=== PATIENT | male | born 1990 ===

== ENCOUNTER → 2017-03-18 | Outpatient (CLI) | payer OTHER ==
[~2017-03-18] MED LIST: BUPR200T2 PO; CYCL10TA2 PO; IBUP200T58 PO
--- NOTE | 2017-03-18 18:18 | PAIN ---
DATE OF SERVICE: 03/18/2017 CHIEF COMPLAINT: Low back and right lower extremity pain. HISTORY OF PRESENT ILLNESS: This is a 26-year-old male who presents with history of pain for many years since 2012 after active and physical job, he works as a automotive glass mechanic with significant pain throughout the back, mostly in the low back, but also in mid and upper back, has been getting worse with time and activity. The patient reports he is having significant pain in the low back itself, also radiating into the posterior aspect of the upper and mid back and sometimes in the neck and shoulders. The patient reports the pain is constant, sharp, stabbing, throbbing with numbness, radiation, tingling, changes during the day with intermittent in intensity, but always present, aching, cramping, burning with some radiation into the right hip, into the groin, also to posterior gluteus, posterior thigh, occasionally into the right lower leg below the knee, mostly the medial aspect of the calf, but only intermittently and not every day. The patient reports it awakens him from sleep at least 3 times a night. Does not affect his bowel or bladder control, but does affect his ability to walk especially with the right leg. The patient reports he has not had any other therapies at this time. No physical therapies, no interventional techniques or other treatments or chiropractic. The patient reports his disability rating from 0-10, 10 being the worst, 7 with family and home responsibilities and sexual behavior, 8 with occupation, 6 with recreation and social activity, 5 with self care and 7 with life support activities. The patient reports no loss of motor function with significant fatigability of the right hip and leg when standing or walking more than about 20-30 minutes. PAST MEDICAL HISTORY: Significant for cigarette smoking half pack a day for the past 10 years, headaches, arthritis, random joint pains. PREVIOUS SURGERY: Includes LASIK procedure, wisdom teeth extraction and a cyst removed in the past. CURRENT MEDICATIONS: Include bupropion, muscle relaxants, Advil and Tylenol. ALLERGIES: The patient has no known drug allergies. FAMILY HISTORY: Significant for no major medical problems or conditions that he is aware of. SOCIAL HISTORY: The patient drinks about 6 beers a month, smokes half pack of cigarettes per day, has for 10 years, single, lives with his significant other, has 2 children, 9 months old living in the home as well and lives in [place], [place]. The patient works as a automotive glass mechanic and he is only working part-time currently because of the pain. REVIEW OF SYSTEMS: The patient's review of systems is positive for those items mentioned in history of present illness is completed in full, well documented on the patient's chart and all systems are reviewed only positive on those listed in the history of present illness. PHYSICAL EXAMINATION: VITAL SIGNS: The patient's blood pressure 130/84, pulse ____, respirations 18, temperature 98.0 degrees Fahrenheit, height is 6 feet 2 inches, weight is 191 pounds. GENERAL: The patient is awake, alert, oriented, appropriate. He is a very pleasant demeanor. HEENT: Head shows normocephalic, atraumatic. Extraocular movements are intact and symmetrical. Oral cavity shows mucous membranes moist and pink. Dentition is intact. NECK: Shows anterior throat supple without palpable lymphadenopathy noted. Swallow reflex is symmetrical. CHEST: Shows normal on inspection. Breath sounds are clear to auscultation bilaterally. HEART: Shows S1 and S2 clear. No murmurs auscultated. ABDOMEN: Soft, nontender, nondistended. No palpable organomegaly is noted. No rebound or guarding demonstrated. BACK: Shows spine grossly in the midline. No previous bruises, lesions, rashes or scars are noted. Cervical lordotic curvature, thoracic kyphotic curvature and lumbar lordotic curvature all appeared normal in appearance. With palpation shows some moderate tenderness to palpation throughout the cervical inferior aspect of the paraspinous musculature as well as superior and medial trapezius, slightly more on the right than the left. Rhomboid distribution as well as infra and suprascapular regions are moderately tender again more on the right than the left, but not asymmetric without specific trigger points without radiation. This is ____ the thoracic paraspinous musculature as well as the lumbar distribution which is firm and tender throughout the upper, middle and lower distribution, slightly more in the lower distribution bilaterally, again more on the right than the left, but appears roughly symmetrical with no evidence of atrophy or hypertrophy. No trigger points with palpation demonstrated. The patient has good rotational motion of the cervical spine as well as the lumbar and thoracic spines with full rotation both laterally as well as extension and flexion in all regions without significant pain reported. Mild tenderness over the sacroiliac regions, but only very mild. With deep palpation, no tenderness over the sacrum. EXTREMITIES: Show upper extremity deep tendon reflexes 2+ in the biceps and triceps tendons. Lower extremities showed 2+ patellar, 1+ tendo-calcaneus tendons, are symmetrical and equal bilaterally. 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 Peripheral pulses are 2+, radial distribution. No peripheral edema is noted. Shoulder shrug is strong and intact as is abduction of shoulders at 90 degrees without difficulty. Lower extremities show motor intact at 5/5 with dorsiflexion and extension, quadriceps and hamstring flexion is symmetrical. Gaenslen's and Nico's maneuvers are negative, both right and left lower extremities. The patient is able to stand, stand on his toes without difficulty, without loss of balance, able to heel-toe walk for several steps without any difficulty. He is not using any assistive devices to ambulate and walks with a normal appearing gait for short distances today in the office. DIAGNOSTIC STUDIES: The patient did have plain films of the cervical and thoracic spines, which were essentially normal. MRI scan showing some minimal bulging in the mid and lower cervical spine as well as in the T6, T7 and T8 with very minor posterior disk bulges in the thoracic spine, not causing any significant stenosis in either region. Lumbar spine was not imaged. IMPRESSION: 1. This is a 26-year-old male with about a 5-year history of increasing pain, mid upper and lower back with some radiation to the right lower extremity intermittently. 2. Consistent with myofascial pain. 3. History of arthritis. 4. Cigarette smoking. PLAN: Options were discussed with the patient including conservative medical management, physical therapy, interventional techniques and we will start the most conservative course. We will order physical therapy with massage and heat therapy as well as some traction of the lumbar spine. Also ultrasound treatment for the neck and shoulders, upper back and mid back. Also, we will try Medrol Dosepak. The patient will be given instruction as well as side effects to be aware of with the medication. Will follow up after physical therapy is completed. If not significantly improved, we did discuss possibility of imaging with a lumbar MRI scan especially if the radicular quality becomes worse on the right lower extremity. The patient understands and agrees and will follow up once physical therapy is completed or near completed. CHARBEL MANZANARES MD DR: GINNA/karlee JOB#: [id number] / [id number]
== END | disposition home or self-care (01) ==
LOC: PNCL 11:00
PROVIDERS: ATTEND Anesthesiology
DX: M54.5 Low back pain (principal); M79.604 Pain in right leg; M79.1 Myalgia; R20.0 Anesthesia of skin; F17.210 Nicotine dependence, cigarettes, uncomplicated
CPT/HCPCS: 99213